=== PATIENT | male | born 1950 | race African-American/Black ===

== ENCOUNTER 2020-04-12 11:51 | Emergency (ER) | payer OTHER ==
[~2020-04-12] VITALS: Ht 170.2 cm; Wt 69.4 kg
[2020-04-12 13:04] LABS: Basophils # (auto) 0.1 10 ^3/uL (0-0.2); Basophils % (auto) 0.8 % (0.0-2.0); Eosinophils # (auto) 0 10 ^3/uL (0-0.8); Eosinophils % (auto) 0.4 % (0.0-7.0); Hematocrit 38.7 % (41.0-53.0); Hemoglobin 13.2 g/dL (13.5-17.5); Lymphocytes % (auto) 14.1 % (10.0-50.0); Mean Corpuscular Hemoglobin 30.5 pg (28.0-32.0); Mean Corpuscular Hgb Conc. 34.2 g/dL (32.0-36.0); Monocytes # (auto) 0.6 10 ^3/uL (0-1.3); Monocytes % (auto) 8.7 % (0.0-12.0); Neutrophils # (auto) 5.3 10 ^3/uL (1.6-8.6); Nucleated Red Blood Cells % 0.1 %; Platelet Count (auto) 238 10^3/uL (140-450); Red Blood Cells 4.34 10^6/uL (4.5-5.90); Red Cell Distribution Width 13.3 % (11.8-14.3)
[2020-04-12 13:26] LABS: Albumin 3.7 g/dL (3.4-5.0); Calcium 8.6 mg/dL (8.5-10.1); Magnesium 2.3 mg/dL (1.6-2.6); Potassium 3.8 mmol/L (3.5-5.1)
[2020-04-12 13:33] LABS: BUN/Creatinine Ratio 13.9; Bilirubin, Total 0.4 mg/dL (0.2-1.0); Total Protein 7.2 g/dL (6.4-8.2)
[2020-04-12 19:17] LABS: INR 1.03 (0.9-1.15); Partial Thromboplastin Time 26.5 sec (23.0-31.2)
[2020-04-12 23:00] VITALS: BP 130/60
== END 2020-04-12 17:16 | disposition short-term general hospital (02) ==
LOC: EDBD 11:51 → ER 11:51
DX: Z46.6 Encounter for fitting and adjustment of urinary device (principal); I21.4 Non-ST elevation (NSTEMI) myocardial infarction; N13.9 Obstructive and reflux uropathy, unspecified; I10 Essential (primary) hypertension; E78.5 Hyperlipidemia, unspecified; E11.9 Type 2 diabetes mellitus without complications
CPT/HCPCS: 36415; 71045; 80053; 82962; 83735; 83880; 84443; 84484; 85025; 85610; 85730; 93005

== ENCOUNTER 2020-08-26 12:29 | Inpatient (IN) | payer OTHER ==
[~2020-08-26] VITALS: Ht 165.1 cm; Wt 70.5 kg
[2020-08-26] MEDS ORDERED: SODIUM CHLORIDE 0.9% 500 ML IV ONE (12:45)
[2020-08-26 13:27] LABS: Basophils # (auto) 0 10 ^3/uL (0-0.2); Basophils % (auto) 0.4 % (0.0-2.0); Eosinophils # (auto) 0 10 ^3/uL (0-0.8); Eosinophils % (auto) 0.6 % (0.0-7.0); Hemoglobin 12.8 g/dL (13.5-17.5); Lymphocytes # (auto) 0.6 10 ^3/uL (0.4-5.4); Lymphocytes % (auto) 8.2 % (10.0-50.0); Mean Corpuscular Hemoglobin 31.2 pg (28.0-32.0); Mean Corpuscular Hgb Conc. 34.6 g/dL (32.0-36.0); Monocytes # (auto) 0.4 10 ^3/uL (0-1.3); Neutrophils # (auto) 6.4 10 ^3/uL (1.6-8.6); Neutrophils % (auto) 85.8 % (37.0-80.0); Red Cell Distribution Width 14.2 % (11.8-14.3); White Blood Cell 7.4 10^3/uL (4.4-10.8)
[2020-08-26 13:47] LABS: Albumin 3.7 g/dL (3.4-5.0); Calcium 8.4 mg/dL (8.5-10.1); Potassium 3.6 mmol/L (3.5-5.1)
[2020-08-26 13:56] LABS: BUN/Creatinine Ratio 12.5; Bilirubin, Total 0.6 mg/dL (0.2-1.0); Total Protein 7.4 g/dL (6.4-8.2)
[2020-08-26] MEDS ORDERED: DEXTROSE (50%) 50ML SYRG IV PRN (17:15)
[2020-08-26] MEDS ORDERED: hydrALAZINE HCL 20 MG/ML VL IV PRN (17:15)
[2020-08-26] MEDS ORDERED: MORPHINE SULFATE INJECTION 2 MG/ML SYRG IV PRN ×2 (17:15)
[2020-08-26] MEDS ORDERED: HYDROcodone-ACET 5/325MG TAB PO PRN (17:15)
[2020-08-26] MEDS ORDERED: ONDANSETRON HCL 4 MG/2 ML VIAL IV PRN (17:15)
[2020-08-26] MEDS ORDERED: ACETAMINOPHEN 500 MG TAB PO PRN (17:15)
[2020-08-26] MEDS ORDERED: NITROGLYCERIN 0.4 MG SL TAB SL PRN (17:15)
[2020-08-26] MEDS: InsuLIN REG 1unit/0.01ml Soln (100units/ml) SC SCH (22:00)
[2020-08-26] MEDS: ACCU-CHEK COMFORT CURVE STRIP VI SCH (22:00)
[2020-08-26] MEDS: METOPROLOL TARTRATE 25 MG TAB PO SCH (22:00)
[2020-08-26] MEDS: ATORVASTATIN 20 MG TAB PO SCH (22:00)
[2020-08-27] VITALS (7 sets, daily range): BP systolic 124–157; BP diastolic 56–84
[2020-08-27] MEDS ORDERED: GLIP10TA9 PO (02:48)
[2020-08-27] MEDS ORDERED: TERA10CA36 PO (02:48)
[2020-08-27] MEDS ORDERED: ATOR20TA50 PO (02:48)
[2020-08-27] MEDS ORDERED: METF-370 PO (02:48)
[2020-08-27] MEDS: InsuLIN REG 1unit/0.01ml Soln (100units/ml) SC SCH ×4 (06:10→22:30)
[2020-08-27] MEDS: ACCU-CHEK COMFORT CURVE STRIP VI SCH ×4 (06:10→22:28)
[2020-08-27 07:14] LABS: Basophils # (auto) 0 10 ^3/uL (0-0.2); Basophils % (auto) 0.4 % (0.0-2.0); Eosinophils # (auto) 0.1 10 ^3/uL (0-0.8); Eosinophils % (auto) 1.8 % (0.0-7.0); Hemoglobin 12.4 g/dL (13.5-17.5); Lymphocytes # (auto) 1.3 10 ^3/uL (0.4-5.4); Lymphocytes % (auto) 15.7 % (10.0-50.0); Mean Corpuscular Hemoglobin 31.9 pg (28.0-32.0); Mean Corpuscular Hgb Conc. 35.4 g/dL (32.0-36.0); Mean Corpuscular Volume 90.1 fL (80.0-100.0); Monocytes # (auto) 0.8 10 ^3/uL (0-1.3); Monocytes % (auto) 9.9 % (0.0-12.0); Neutrophils # (auto) 5.9 10 ^3/uL (1.6-8.6); Neutrophils % (auto) 72.2 % (37.0-80.0); Nucleated Red Blood Cells % 0.1 %; Red Blood Cells 3.89 10^6/uL (4.5-5.90); Red Cell Distribution Width 14.2 % (11.8-14.3); White Blood Cell 8.2 10^3/uL (4.4-10.8)
[2020-08-27 07:19] LABS: Potassium 3.7 mmol/L (3.5-5.1)
[2020-08-27 07:24] LABS: INR 1.01 (0.9-1.15); Partial Thromboplastin Time 26.4 sec (23.0-31.2)
[2020-08-27 07:26] LABS: BUN/Creatinine Ratio 13.9; Calcium 8.6 mg/dL (8.5-10.1)
[2020-08-27] MEDS: ASPirin-EC 81 mg tab PO SCH (11:49)
[2020-08-27] MEDS: FAMOTIDINE 20 MG TAB PO SCH (11:49)
[2020-08-27] MEDS: LISINOPRIL 10 MG TAB PO SCH (11:49)
[2020-08-27] MEDS: METOPROLOL TARTRATE 25 MG TAB PO SCH ×2 (11:49→22:00)
[2020-08-27] MEDS: ATORVASTATIN 20 MG TAB PO SCH (22:29)
[2020-08-27] MEDS: TERAZOSIN HCL 5 MG CAP PO SCH (22:58)
[2020-08-28 05:00] VITALS: BP 136/55
[2020-08-28] MEDS: ACCU-CHEK COMFORT CURVE STRIP VI SCH ×4 (06:30→22:22)
[2020-08-28] MEDS: InsuLIN REG 1unit/0.01ml Soln (100units/ml) SC SCH ×4 (06:30→22:23)
[2020-08-28] MEDS ORDERED: ADENOSINE 57 MG in GIVE UN-DILUTED 0 ML IV STA ×2 (08:28→08:29)
[2020-08-28 08:57] VITALS: BP 117/70
[2020-08-28] MEDS: METOPROLOL TARTRATE 25 MG TAB PO SCH ×2 (10:00→22:23)
[2020-08-28] MEDS: LISINOPRIL 10 MG TAB PO SCH (10:00)
[2020-08-28] MEDS: FAMOTIDINE 20 MG TAB PO SCH (10:59)
[2020-08-28] MEDS: ASPirin-EC 81 mg tab PO SCH (10:59)
[2020-08-28 12:59] VITALS: BP 123/71
[2020-08-28 16:43] VITALS: BP 130/68
[2020-08-28 22:00] VITALS: BP 129/79
[2020-08-28] MEDS: ATORVASTATIN 20 MG TAB PO SCH (22:22)
[2020-08-28] MEDS: TERAZOSIN HCL 5 MG CAP PO SCH (22:22)
[2020-08-28] MEDS ORDERED: DEXTROSE (50%) 50ML SYRG IV PRN (23:00)
[2020-08-29 05:00] VITALS: BP 131/67
[2020-08-29] MEDS: ACCU-CHEK COMFORT CURVE STRIP VI SCH ×2 (06:22→13:14)
[2020-08-29] MEDS: InsuLIN REG 1unit/0.01ml Soln (100units/ml) SC SCH ×2 (06:23→13:14)
[2020-08-29 07:28] VITALS: BP 129/69
[2020-08-29] MEDS ORDERED: ANGIOMAX 250 MG VIAL IV ONE (09:56)
[2020-08-29] MEDS ORDERED: fentaNYL CITRATE 100 MCG/2 ML VL ONE (09:56)
[2020-08-29] MEDS ORDERED: MIDAZOLAM HCL 2MG/2ML 2ml VIAL (1mg/ml) ONE (09:56)
[2020-08-29] MEDS ORDERED: SODIUM CHL 0.9% 0 ML ONE (09:56)
[2020-08-29] MEDS ORDERED: IODIXANOL 320MG/ML 100ML BTL IV ONE ×2 (09:57→10:26)
[2020-08-29] MEDS ORDERED: LIDOCAINE 2%HCL (LOCAL ANESTH.) INJ 20ML MDV ONE (09:57)
[2020-08-29] MEDS: METOPROLOL TARTRATE 25 MG TAB PO SCH (10:00)
[2020-08-29] MEDS: FAMOTIDINE 20 MG TAB PO SCH (13:06)
[2020-08-29] MEDS: ASPirin-EC 81 mg tab PO SCH (13:06)
[2020-08-29] MEDS: LISINOPRIL 10 MG TAB PO SCH (13:07)
[2020-08-29] MEDS ORDERED: SODIUM CHLOR 0.9% PF (SALINE LOCK) 10ML VIAL/SYR IV SCH (14:00)
[2020-08-29 16:33] VITALS: BP 131/61
[2020-08-29] MEDS ORDERED: InsuLIN REG 1unit/0.01ml Soln (100units/ml) SC SCH (22:00)
== END 2020-08-29 17:34 | disposition home or self-care (01) | DRG 281 ==
LOC: EDBD 12:29 → ER 12:29 → TELE 12:30 → TELE-EAST 23:49
PROVIDERS: ADMIT Nurse Practitioner Acute Care; ATTEND Internal Medicine
PROC: 4A023N7 Measurement of Cardiac Sampling and Pressure, Left Heart, Percutaneous Approach (ICD-10-PCS; principal; 2020-08-29)
PROC: B211YZZ Fluoroscopy of Multiple Coronary Arteries using Other Contrast (ICD-10-PCS; 2020-08-29)
PROC: B215YZZ Fluoroscopy of Left Heart using Other Contrast (ICD-10-PCS; 2020-08-29)
DX: I21.4 Non-ST elevation (NSTEMI) myocardial infarction (principal); I16.1 Hypertensive emergency; I25.10 Atherosclerotic heart disease of native coronary artery without angina pectoris; E11.9 Type 2 diabetes mellitus without complications; I10 Essential (primary) hypertension; E78.5 Hyperlipidemia, unspecified; Z79.82 Long term (current) use of aspirin; Z79.84 Long term (current) use of oral hypoglycemic drugs; Z79.899 Other long term (current) drug therapy; Z83.3 Family history of diabetes mellitus; Z20.822 Contact with and (suspected) exposure to COVID-19; Z86.16 Personal history of COVID-19
CPT/HCPCS: 36415; 71045; 78452; 80048; 80053; 82962; 83036; 84484; 85025; 85610; 85730; 86141; 86850; 86900; 86901; 87426; 93005; 93017; 93306; 93458; 96360; 96361; 99152; 99153; G0378; J0153; J1815; J2250; Q9967

== ENCOUNTER 2021-01-05 19:05 | Emergency (ER) | payer OTHER ==
[~2021-01-05] VITALS: Ht 170.2 cm; Wt 68.0 kg
[~2021-01-05 19:05] MED LIST: ATOR20TA50 PO; GLIP10TA9 PO; METF-370 PO; TERA10CA36 PO
[2021-01-05 19:21] VITALS: BP 160/84
[2021-01-05 20:22] LABS: Basophils # (auto) 0 10 ^3/uL (0-0.2); Basophils % (auto) 0.4 % (0.0-2.0); Eosinophils # (auto) 0.1 10 ^3/uL (0-0.8); Eosinophils % (auto) 1.9 % (0.0-7.0); Hematocrit 36.8 % (41.0-53.0); Hemoglobin 12.8 g/dL (13.5-17.5); Lymphocytes # (auto) 1.5 10 ^3/uL (0.4-5.4); Lymphocytes % (auto) 25.3 % (10.0-50.0); Mean Corpuscular Hemoglobin 31.1 pg (28.0-32.0); Mean Corpuscular Hgb Conc. 34.9 g/dL (32.0-36.0); Mean Corpuscular Volume 89.1 fL (80.0-100.0); Monocytes # (auto) 0.5 10 ^3/uL (0-1.3); Monocytes % (auto) 8.5 % (0.0-12.0); Neutrophils # (auto) 3.7 10 ^3/uL (1.6-8.6); Neutrophils % (auto) 63.9 % (37.0-80.0); Platelet Count (auto) 230 10^3/uL (140-450); Red Blood Cells 4.13 10^6/uL (4.5-5.90); Red Cell Distribution Width 13.7 % (11.8-14.3); White Blood Cell 5.7 10^3/uL (4.4-10.8)
[2021-01-05 20:47] LABS: Albumin 3.7 g/dL (3.4-5.0); Calcium 8.5 mg/dL (8.5-10.1); Magnesium 2.1 mg/dL (1.6-2.6); Potassium 3.7 mmol/L (3.5-5.1)
[2021-01-05 21:02] LABS: Bilirubin, Total 0.2 mg/dL (0.2-1.0); Total Protein 7.3 g/dL (6.4-8.2)
== END 2021-01-05 21:29 | disposition home or self-care (01) ==
LOC: EDBD 19:05 → ER 19:08
DX: R42 Dizziness and giddiness (principal); R51.9 Headache, unspecified; E11.9 Type 2 diabetes mellitus without complications; E78.5 Hyperlipidemia, unspecified; I10 Essential (primary) hypertension
CPT/HCPCS: 36415; 70450; 71045; 80053; 83735; 84484; 85025; 93005